=== PATIENT | female | born 1985 | race Caucasian/White ===

== ENCOUNTER 2022-08-08 19:06 | Emergency (ER) | payer OTHER, SELFPAY ==
[2022-08-08 20:10] VITALS: BP 110/56; PULSE 115; RESP 22; TEMP 36.8; O2SAT 100; BMI 39.1
[2022-08-08 20:41] LABS: Microscopic, Urine URINE MICROSCOPIC (MICROSCOPIC)
--- NOTE | 2022-08-08 20:50 | CT_ITS ---
PROCEDURE INFORMATION: Exam: CT Abdomen And Pelvis Without Contrast Exam date and time: 08/08/2022 9:12 PM Age: 37 years old Clinical indication: Abdominal pain; Flank; Right; Additional info: R flank pain, hematuria, HX stones TECHNIQUE: Imaging protocol: Computed tomography of the abdomen and pelvis without contrast. Radiation optimization: All CT scans at this facility use at least one of these dose optimization techniques: automated exposure control; mA and/or kV adjustment per patient size (includes targeted exams where dose is matched to clinical indication); or iterative reconstruction. COMPARISON: No relevant prior studies available. FINDINGS: Liver: Normal. No mass. Gallbladder and bile ducts: Multiple gallstones. Pancreas: Normal. No ductal dilation. Spleen: Normal. No splenomegaly. Adrenal glands: Normal. No mass. Kidneys and ureters: Severe right hydronephrosis and perinephric stranding and ureteral dilatation secondary to a 5 mm stone in the urinary bladder and a 2nd 2 mm stone in the right UVJ. Bilateral nephrolithiasis. Stomach and bowel: Constipation. No colitis or small bowel obstruction Appendix: No evidence of appendicitis. Intraperitoneal space: Unremarkable. No free air. No significant fluid collection. Vasculature: Unremarkable. No abdominal aortic aneurysm. Lymph nodes: Unremarkable. No enlarged lymph nodes. Urinary bladder: Unremarkable as visualized. Reproductive: Unremarkable as visualized. Bones/joints: Unremarkable. No acute fracture. Soft tissues: Unremarkable. IMPRESSION: Severe right hydronephrosis and perinephric stranding and ureteral dilatation secondary to a 5 mm stone in the urinary bladder and a 2nd 2 mm stone in the right UVJ.
[2022-08-08 20:54] LABS: Appearance,Urine CLOUDY (Clear); Blood, Urine 1+ (Negative); Color,Urine ORANGE (Yellow); Glucose,Urine (UA) 1+ (Negative); Ketones,Urine TRACE (Negative); Leukocyte Esterase,Urine 3+ (Negative); Nitrate,Urine POSITIVE (Negative); Protein,Urine 2+ (Negative)
[2022-08-08 20:57] LABS: Basophils # 0.1 K/mm3 (0-0.2); Basophils % 0.2 % (0.1-2.0); Eosinophils # 0.3 K/mm3 (0.0-0.4); Eosinophils % 1.5 % (0.1-12.0); Hematocrit 41.5 % (37.0-47.0); Hemoglobin 13.3 g/dL (12.2-16.2); Lymphocytes # 0.5 K/mm3 (0.7-4.5); Lymphocytes % 2.2 % (10-50); Mean Corpuscular HGB Conc 32.2 g/dL (31.8-35.4); Mean Corpuscular Hemoglobin 29.2 pg (27.0-31.2); Mean Corpuscular Volume 90.6 fl (81-99); Mean Platelet Volume 9.2 fl (7.4-10.4); Monocytes # 0.5 K/mm3 (0.1-1.0); Neutrophils # 21.8 K/mm3 (1.8-7.8); Neutrophils % 94.2 % (37.0-80.0); Platelet Count 417 K/mm3 (142-424); Red Blood Count 4.57 M/mm3 (4.20-5.40); Red Cell Distribution Width 14.2 % (11.5-17.5)
[2022-08-08 20:57] LABS: Bilirubin,Urine 1+ (Negative)
[2022-08-08 20:59] LABS: White Blood Count 23.1 K/mm3 (4.8-10.8)
[2022-08-08 21:01] LABS: MANUAL DIFFERENTIAL MANUAL DIFFERENTIAL (MANUAL DIFF)
[2022-08-08 21:03] LABS: Alanine Aminotransferase 23 U/L (12-78); Albumin Level 4.2 g/dl (3.5-5.0); Albumin/Globulin Ratio 1.2 (1.1-1.8); Alkaline Phosphatase 125 U/L (38-126); Anion Gap 13.2 mEq/L (5-15); Aspartate Amino Transferase 31 U/L (14-36); Bilirubin,Total 0.4 mg/dl (0.2-1.3); Blood Urea Nitrogen 19 mg/dl (7-17); Calcium 10.5 mg/dl (8.4-10.2); Carbon Dioxide 26 mmol/L (22.0-30.0); Chloride 105 mmol/L (98-107); Creatinine Clearance Estimated 100 mL/min (50-200); Estimated Glomerular Filt Rate 43 ml/min (>60); GFR (African American) 52 ML/MIN (>60); Globulin 3.6 g/dL (1.3-3.2); Glucose 136 mg/dl (74-100); Potassium 4.2 mmoL/L (3.5-5.1); Sodium 140 mmol/L (136-145); Total Protein,Serum 7.8 g/dl (6.3-8.2)
[2022-08-08 21:08] LABS: Urine Pregnancy, HCG Qual. Negative (Negative)
--- NOTE | 2022-08-08 21:11 | PC.NURSE ---
Pt gone to RAD
[2022-08-08 21:14] LABS: Lymphocytes % 9 % (10-50); Monocytes % 1 % (2-9); Neutrophils % 82 % (42-76); Platelet Estimate Normal; RBC Morphology Normal; Total Cells Counted 100
[2022-08-08 21:16] LABS: Bacteria,Urine 1+ /lpf; Squamous Epithelial Cell,Urine Occasional #/hpf (0-5); WBC,Urine TNTC #/hpf (0-3)
--- NOTE | 2022-08-08 21:20 | PC.NURSE ---
Pt back from RAD
--- NOTE | 2022-08-08 22:02 | PC.NURSE ---
Dr. Pimentel at
--- NOTE | 2022-08-08 22:03 | HMH.EDGENADL ---
Discharge Plan Disposition Patient Disposition: Home, Self-Care Prescriptions Prescriptions: New tamsulosin [Flomax] 0.4 mg capsule 0.4 mg PO DAILY Qty: 10 0RF ketorolac 10 mg tablet 10 mg PO Q6H PRN (Reason: pain) 3 Days Qty: 10 0RF levofloxacin 500 mg tablet 500 mg PO DAILY Qty: 7 0RF Referrals Follow up/Referrals: Booker Mora MD [Staff Physician] - See instructions Roxanne Argueta [Primary Care Provider] - See instructions oMses Pimentel MD [Emergency Provider] - See instructions Mason Bourgeois MD [Referring] - See instructions Clinical Impressions Clinical Impression: Renal colic on right side, UTI (urinary tract infection), SIRS (systemic inflammatory response syndrome), Cholelithiasis Instructions Patient Instructions: DI for Kidney Stones Discharge ED Provider: Moses Pimentel General Adult HPI General Chief complaint: PAIN Stated complaint: posible Kidney stones Time Seen by Provider: 08/08/22 22:03 Mode of Arrival: Family Vehicle Source of Information: Patient Limitations: No Limitations Description of Symptoms (Recalled from ER Triage Doc. by RN): Pt c/o R flank pain that radiates to RLQ ABD pain. She also c/o nausea and vomiting. She reports a hx of kidney stones and frequent UTI's, 2 in the last mn (dx @ [facility]). Pt also c/o urethral pain. History of Present Illness HPI narrative: rt flank pain with nausea over the last few days with hx of stones - Onset (ago): day(s) Location: pelvis Severity: moderate Associated symptoms: denies other symptoms Related Data Previous Rx's Medication Instructions Recorded ketorolac 10 mg tablet 10 mg PO Q6H PRN pain 3 days #10 08/08/22 tabs levofloxacin 500 mg tablet 500 mg PO DAILY #7 tabs 08/08/22 tamsulosin 0.4 mg capsule (Flomax) 0.4 mg PO DAILY #10 caps 08/08/22 Allergies Allergy/AdvReac Type Severity Reaction Status Date / Time No Known Allergies Allergy Verified 04/14/19 21:02 [facility] Disclaimer: The information contained in this section may have been updated after the patient was seen, as this information can be updated by other users. Social History Smoking Status: Never smoker alcohol intake: never current occupational status: other Travel in the last 8 weeks: None ROS Obtained: Yes All systems reviewed & no additional complaints except as documented Physical Exam General General appearance: in no apparent distress Head Head exam: normocephalic Eye Eye exam: Present PERRL and EOMI ENT ENT exam: Present mucous membranes moist Neck Neck exam: Present full ROM Respiratory Respiratory exam: Present normal lung sounds bilaterally Cardiovascular Cardiovascular exam: Present regular rate Abdominal Exam Abdominal exam: Present soft Extremities Exam Extremities exam: Present full ROM Back Exam Back exam: Absent CVA tenderness (R) Neurological Exam Neurological exam: Present alert, oriented X3 and CN II-XII intact Psychiatric Psychiatric exam: Present normal affect Skin Skin exam: Absent rash Medical Decision Making Medical Records Medical records reviewed: Yes I reviewed the patient's medical records. Pankaj Inquiry Pt receiving controlled substance: No Vital Signs: 08/08/22 20:10 Temperature 98.2 F Temperature Source Oral Pulse Rate [Right] 115 H Respiratory Rate 22 Blood Pressure [Right Arm] 110/56 L Blood Pressure Mean [Right Arm] 74 Blood Pressure Source [Right Arm] Automatic Cuff 02 Sat by Pulse Oximetry 100 Oxygen Delivery Method Room Air Lab Data Lab results reviewed: Yes I reviewed the patient's lab results. Lab Results 08/08/22 20:22: Urine Color [place], Urine Appearance Cloudy, Urine pH 5.0, Ur Specific [place] 1.020, Urine Protein 2+, Urine Glucose (UA) 1+, Urine Ketones Trace, Urine Blood 1+, Urine Nitrate Positive, Urine Bilirubin 1+ A, Urine Urobilinogen 4.0, Ur Leukocyte Esterase 3+ A, Urine RBC 3-5, Urine WBC Tntc, Ur Squamous Epith Cells Occasional, Urine
[2022-08-09 00:04] VITALS: BP 130/80; PULSE 83; RESP 18; TEMP 36.6; O2SAT 99
== END 2022-08-09 00:06 | disposition home or self-care (01) ==
PROVIDERS: Emergency Provider Emergency Medicine; PCP Nurse Practitioner Family
DX: N39.0 Urinary tract infection, site not specified (principal); K80.20 Calculus of gallbladder without cholecystitis without obstruction; R65.10 Systemic inflammatory response syndrome (SIRS) of non-infectious origin without acute organ dysfunction
CPT/HCPCS: 74176; 80053; 81001; 81025; 85007; 85025; 87086; 87088; 87186; 96365; 96367; 96375; 99284; J0696; J2405

== ENCOUNTER → 2022-10-14 09:57 | Outpatient (CLI) | payer OTHER, SELFPAY ==
--- NOTE | 2022-10-14 10:04 | US_ITS ---
FINAL REPORT CLINICAL HISTORY: RUQ PAIN FINDINGS: RIGHT UPPER QUADRANT ULTRASOUND Sonographic images of the right upper quadrant were obtained. The pancreas is partially obscured.The liver has an unremarkable appearance. There are gallstones in the gallbladder. The common duct is normal. There is a right renal cyst measuring 1.6 cm. IMPRESSION: Cholelithiasis. Right renal cyst. Reviewed, Interpreted and Dictated by Cristofer Srivastava MD Transcribed by Alem Valdez Authenticated and [facility]
--- NOTE | 2022-10-14 10:04 | NM_ITS ---
FINAL REPORT TECHNIQUE: The patient was injected with 8.16 mCi of technetium 99m Choletec. Images of the abdomen were obtained for one hour. CLINICAL HISTORY: RUQ PAIN 10:40am 8.16 [facility] tc choletec no cck used due to patient having gallstones on us, images were done out to 60 min FINDINGS: Hepatic uptake is normal. There is gallbladder and small bowel activity at 30 minutes. There is no evidence of acute cholecystitis. IMPRESSION: No evidence of acute cholecystitis. Reviewed, Interpreted and Dictated by Cristofer Srivastava MD Transcribed by Skylar Rosas Authenticated and [facility]
== END ==
PROVIDERS: PCP Nurse Practitioner; Visit Provider Nurse Practitioner
DX: R10.11 Right upper quadrant pain (principal); K80.20 Calculus of gallbladder without cholecystitis without obstruction
CPT/HCPCS: 76705; 78226; A9537

== ENCOUNTER → 2022-11-11 10:21 | Outpatient (CLI) | payer OTHER, MEDICAID, SELFPAY ==
--- NOTE | 2022-11-11 10:31 | US_ITS ---
FINAL REPORT CLINICAL HISTORY: CYST COMPARISON: 10/14/2022 abdominal ultrasound FINDINGS: RENAL ULTRASOUND Ultrasound images of the kidneys were obtained. Limited images of the liver parenchyma demonstrates normal echogenicity. The right kidney measures 10.7 cm in length. Cortical thinning is noted. There is a 1.3 cm probable cyst. The left kidney measures 11.2 cm in length. Cortical thinning is noted. IMPRESSION: Bilateral renal cortical thinning. 1.3 cm probable right renal cyst. Reviewed, Interpreted and Dictated by Booker Gonzales III, MD Transcribed by Marcella Jernigan Authenticated and . [facility]
== END ==
LOC: RAD 10:22
PROVIDERS: PCP Nurse Practitioner; Visit Provider Nurse Practitioner
DX: N28.1 Cyst of kidney, acquired (principal)
CPT/HCPCS: 76770

== ENCOUNTER 2023-04-03 09:53 | Emergency (ER) | payer MEDICAID, SELFPAY ==
[2023-04-03] VITALS (8 sets, daily range): BP systolic 98–126; BP diastolic 57–77; PULSE 70–109; RESP 16–18; TEMP 36.9; O2SAT 97–100; BMI 47.0
--- NOTE | 2023-04-03 10:15 | CT_ITS ---
PROCEDURE INFORMATION: Exam: CT Abdomen And Pelvis With Contrast Exam date and time: 04/03/2023 10:47 AM Age: 38 years old Clinical indication: Abdominal pain; Localized; Right lower quadrant (rlq); Additional info: Rlq pain, previous stones TECHNIQUE: Imaging protocol: Computed tomography of the abdomen and pelvis with contrast. Radiation optimization: All CT scans at this facility use at least one of these dose optimization techniques: automated exposure control; mA and/or kV adjustment per patient size (includes targeted exams where dose is matched to clinical indication); or iterative reconstruction. Contrast material: ISOVUE; Contrast volume: 75 ml; Contrast route: IV; REPORTING DATA: Count of CT and Cardiac NM exams in prior 12 months: This patient has received [address] and 0 known cardiac nuclear medicine studies in the 12 months prior to the current study. COMPARISON: CT ABDOMEN PELVIS WO CON 08/08/2022 9:12 PM FINDINGS: Lungs: Lung bases are clear. Liver: Normal. No mass. Gallbladder and bile ducts: There are multiple gallstones otherwise gallbladder is unremarkable. Bile ducts are not dilated. Pancreas: Unremarkable. Main pancreatic duct is not significantly dilated. Spleen: Normal. No splenomegaly. Adrenal glands: Normal. No mass. Kidneys and ureters: Multiple nonobstructing calculi both kidneys. No ureteral stones or hydronephrosis. Stomach and bowel: Unremarkable. No obstruction. No mucosal thickening. Appendix: No evidence of appendicitis. Intraperitoneal space: Unremarkable. No free air. No significant fluid collection. Vasculature: Unremarkable. No abdominal aortic aneurysm. Lymph nodes: Unremarkable. No enlarged lymph nodes. Urinary bladder: Unremarkable as visualized. Reproductive: Unremarkable as visualized. Bones/joints: Unremarkable. No acute fracture. Soft tissues: Unremarkable. IMPRESSION: 1. No acute findings within the abdomen or pelvis. 2. Cholelithiasis without evidence of acute cholecystitis. 3. Bilateral non-obstructing renal stones. No hydronephrosis.
--- NOTE | 2023-04-03 10:16 | HMH.EDGENADL ---
Discharge Plan Disposition Patient Disposition: Home, Self-Care Condition: Fair Prescriptions Prescriptions: New cefdinir 300 mg capsule 300 mg PO BID 7 Days Qty: 14 0RF No Action tamsulosin [Flomax] 0.4 mg capsule 0.4 mg PO DAILY Qty: 10 0RF ketorolac 10 mg tablet 10 mg PO Q6H PRN (Reason: pain) 3 Days Qty: 10 0RF levofloxacin 500 mg tablet 500 mg PO DAILY Qty: 7 0RF Referrals Follow up/Referrals: Valeria Pascal APRN [Primary Care Provider] - See instructions Activity Restrictions/Add. Instructions Additional Instructions/Restrictions: At this time was felt you are safe to be discharged home. If new or worsening symptoms please do not hesitate to return the emergency department. Please take antibiotics as prescribed and follow-up with your family doctor within 5 days for continued evaluation. Clinical Impressions Clinical Impression: UTI (urinary tract infection) Instructions Patient Instructions: Urinary Tract Infection Discharge ED Provider: Del Florence General Adult HPI General Chief complaint: Abdominal Pain Stated complaint: low right side pain Time Seen by Provider: 04/03/23 10:03 History of Present Illness HPI narrative: Patient is a 38-year-old female with past medical history of previous ureterolithiasis requiring lithotripsy presents emergency department for evaluation of right lower quadrant abdominal pain. Onset was acute, over the last 24 hours, moderate to severe in intensity, intermittent. No vomiting. Last menstrual period 2 weeks ago. Denies dysuria. No other acute complaints at this time Related Data Previous Rx's Medication Instructions Recorded ketorolac 10 mg tablet 10 mg PO Q6H PRN pain 3 days #10 08/08/22 tabs levofloxacin 500 mg tablet 500 mg PO DAILY #7 tabs 08/08/22 tamsulosin 0.4 mg capsule (Flomax) 0.4 mg PO DAILY #10 caps 08/08/22 cefdinir 300 mg capsule 300 mg PO BID 7 days #14 caps 04/03/23 Allergies Allergy/AdvReac Type Severity Reaction Status Date / Time No Known Allergies Allergy Verified 04/14/19 21:02 [facility] Disclaimer: The information contained in this section may have been updated after the patient was seen, as this information can be updated by other users. Social History Smoking Status: Former smoker alcohol intake: never current occupational status: other Travel in the last 8 weeks: None ROS Obtained: Yes Systems reviewed as appropriate & no additional complaints except as documented Physical Exam General General appearance: alert and in no apparent distress Head Head exam: atraumatic and normocephalic Eye Eye exam: Present PERRL and EOMI ENT ENT exam: Present mucous membranes moist Neck Neck exam: Present normal inspection Chest Chest inspection: Present normal inspection and symmetric chest wall rise Respiratory Respiratory exam: Present normal lung sounds bilaterally; Absent respiratory distress Cardiovascular Cardiovascular exam: Present regular rate and normal rhythm Abdominal Exam Abdominal exam: Present soft and tenderness (Mild, right lower quadrant, suprapubic) Extremities Exam Extremities exam: Present normal inspection Neurological Exam Neurological exam: Present alert and oriented X3 Psychiatric Psychiatric exam: Present normal affect Skin Skin exam: Present warm and dry Medical Decision Making Pankaj Inquiry Pt receiving controlled substance: No Vital Signs: 04/03/23 09:55 04/03/23 10:30 04/03/23 11:30 Temperature 98.5 F Temperature Source Oral Pulse Rate 77 78 Pulse Rate [Right Radial] 109 H Respiratory Rate 18 18 Blood Pressure 98/58 L 116/63 Blood Pressure [Right Arm] 126/77 Blood Pressure Mean 71 81 Blood Pressure Mean [Right Arm] 93 Blood Pressure Source [Right Arm] Automatic Cuff Blood Pressure Position [Right Arm] Sitting 02 Sat by Pulse Oximetry 99 99 97 Oxygen Delivery Method Room Air 04/03/23 12:00 04/03/23 12:31
[2023-04-03 10:17] LABS: Microscopic, Urine URINE MICROSCOPIC (MICROSCOPIC)
[2023-04-03 10:19] LABS: Appearance,Urine CLOUDY (Clear); Bilirubin,Urine Negative (Negative); Blood, Urine TRACE-I (Negative); Color,Urine YELLOW (Yellow); Glucose,Urine (UA) Negative (Negative); Ketones,Urine Negative (Negative); Leukocyte Esterase,Urine 3+ (Negative); Nitrate,Urine POSITIVE (Negative); Protein,Urine Negative (Negative); Urobilinogen,Urine 0.2 EU/dl (0.2)
[2023-04-03 10:22] LABS: Urine Pregnancy, HCG Qual. Negative (Negative)
[2023-04-03 10:23] LABS: Basophils % 0.5 % (0.1-2.0); Eosinophils # 0.3 K/mm3 (0.0-0.4); Eosinophils % 3.2 % (0.1-12.0); Hematocrit 42.8 % (37.0-47.0); Hemoglobin 13.5 g/dL (12.2-16.2); Lymphocytes % 32.8 % (10-50); Mean Corpuscular HGB Conc 31.5 g/dL (31.8-35.4); Mean Corpuscular Hemoglobin 27.3 pg (27.0-31.2); Mean Corpuscular Volume 86.8 fl (81-99); Mean Platelet Volume 7.8 fl (7.4-10.4); Monocytes # 0.4 K/mm3 (0.1-1.0); Monocytes % 4.8 % (1.7-9.3); Neutrophils # 5.3 K/mm3 (1.8-7.8); Neutrophils % 58.8 % (37.0-80.0); Platelet Count 420 K/mm3 (142-424); Red Blood Count 4.94 M/mm3 (4.20-5.40); Red Cell Distribution Width 13.2 % (11.5-17.5); White Blood Count 9.1 K/mm3 (4.8-10.8)
[2023-04-03 10:30] LABS: Bacteria,Urine 3+ /lpf; Squamous Epithelial Cell,Urine Occasional #/hpf (0-5); WBC,Urine 50-100 #/hpf (0-3)
[2023-04-03 10:31] LABS: Alanine Aminotransferase 24 U/L (12-78); Albumin Level 3.9 g/dl (3.5-5.0); Albumin/Globulin Ratio 1.2 (1.1-1.8); Alkaline Phosphatase 94 U/L (38-126); Anion Gap 9.4 mEq/L (5-15); Aspartate Amino Transferase 27 U/L (14-36); Bilirubin,Total 0.3 mg/dl (0.2-1.3); Blood Urea Nitrogen 12 mg/dl (7-17); Calcium 9.8 mg/dl (8.4-10.2); Carbon Dioxide 31 mmol/L (22.0-30.0); Chloride 105 mmol/L (98-107); Creatinine Clearance Estimated 69 mL/min (50-200); Estimated Glomerular Filt Rate 56 ml/min (>60); GFR (African American) 68 ML/MIN (>60); Globulin 3.3 g/dL (1.3-3.2); Glucose 103 mg/dl (74-100); Lipase 108 U/L (23-300); Potassium 4.4 mmoL/L (3.5-5.1); Sodium 141 mmol/L (136-145); Total Protein,Serum 7.2 g/dl (6.3-8.2)
--- NOTE | 2023-04-03 11:03 | PC.NURSE ---
Pillow and warm blanket provided. Pt updated on plan of care.
--- NOTE | 2023-04-03 11:28 | PC.NURSE ---
Rounded on patient nothing needed at this time. Call long within reach
[2023-04-03 12:08] LABS: Lactic Acid 0.9 mmol/L (0.7-2.1)
== END 2023-04-03 13:33 | disposition home or self-care (01) ==
PROVIDERS: Emergency Provider Emergency Medicine; PCP Nurse Practitioner
DX: N39.0 Urinary tract infection, site not specified; R10.31 Right lower quadrant pain; Z87.891 Personal history of nicotine dependence
CPT/HCPCS: 74177; 80053; 81001; 81025; 83605; 83690; 85025; 87040; 87086; 87088; 87186; 96361; 96374; 96375; 99285; J0131; J0696; Q9967